=== PATIENT | male | born 1970 | race Caucasian/White ===

== ENCOUNTER 2017-11-02 15:13 | Emergency (ER) | payer OTHER ==
--- OUTSIDE RECORDS SUMMARY | 2017-11-02 17:19 | XMS REPORT ---
:1970 External Reference #:[id number] Author Organization [facility] Address [address] [place] [address] Phone [phone] Care Team Providers Name Role Phone Buck Tejada M.D. Primary Care Physician Unavailable Payers Type Date Identification Numbers Payment Provider Subscriber Commercial Effective: Policy Number: [id number] [facility] Aaron Johansen 2016 Group Number: [id number] [id number] Group Name: [place] [address] PayID: [id number] Problems Date Description Provider Status Onset: 05/29/2017 Allergic rhinitis Lizztete Mendez M.D. Active Onset: 01/30/2017 Cough Lizzette Mendez M.D. Active Onset: 01/30/2017 Pneumonia due to other specified Lizzette Mendez M.D. Active bacteria Onset: 01/30/2017 Uncomplicated moderate persistent asthma Lizzette Mendez M.D. Active Family History Date Family Member(s) Problem(s) Comments Father Food Intolerance Lactose intolerant Father Heart Disease High blood pressure, minor surgeries Onset: (2006) Father Cancer skin cancer, treated Father Parkinsons Mother sinus disorders Mother Drug Allergy allergy to sulfur & sulfur based drugs. 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 Marital Status Legal Status: Lives With Spouse Home Environment There are no draperies in the home Home Environment Cotton Comforter Home Environment Water Source: [facility] Home Environment Lives in a one level home Home Environment Lives in a 1 level wood frame home Home Environment The basement is damp and sump pump used Home Environment The basement is damp and dehumidifier used Home Environment Uses forced air heating Home Environment Has central air Home Environment The floors are wood Home Environment The home is not rebecca Home Environment Uses air [employer] Home Environment Pillows are rubber (foam) Home Environment Pillows are encased in an allergy proof case Home Environment Mattress is 1 year old Home Environment Mattress is encased in an allergy proof case Smoke-Free Work is smoke-free Smoke-Free Home is smoke-free Pets None no dogs in many years Occupation [employer] 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 [place] Work Status Full-Time Employment Hobbies Hiking Cigarette Use Never Smoked Cigarettes Cigars Never Smoked Cigars Pipe Never Smoked A Pipe Smokeless Tobacco Never Used Smokeless Tobacco ETOH Use Rarely consumes alcohol ETOH Use Rarely consumes wine Smoking Patient has never smoked Recreational Drug Use Never Used Drugs Allergies, Adverse Reactions, Alerts Date Description Reaction Status Severity Comments 01/30/2017 Arythromycin heart palpatations active 04/10/2017 Lactose cramps diarrhea active Medications Medication Date Status Form Strength Qnty SIG Indications Ordering Provider Montelukast 05/29/ Active Chewtabs 5mg 60unit chew 2016 s tablets by McNnekarshelly mouth M.D. every day Dulera 04/10/ Active Aerosol 100-5mcg/A 39gm inhale 2016 ct puffs by McNnekarshelly mouth M.D. every morning and evening Ventolin HFA / Active Aerosol 108(90Base 2 every 4 Unknown 0000 ) mcg/Act hours as needed Trazodone HCL / Active Tablets 50mg Unknown 0000 Albuterol / Active Nebulizer (2.5mg/3ML Unknown Sulfate 0000 ) 0.083% Valved Holding / Active Device use as Unknown Chamber 0000 directed Yodit / Active Tablets 180mg 1 by mouth Unknown Allergy 0000 every day Spiriva / Active Aerosol 1.25mcg/Ac 4units inhale Respimat 0000 t puffs by McNairn, mouth M.D. every day Immunizations CPT Code Status Date Vaccine Lot # [id number] Given Unknown Influenza Vaccine 3 Years Old + Vital Signs Date Vital Result Comment 10/30/2017 Height 67 inches 5'7" Weight 173.00 lb Weight in kg's 78.473 Respiratory Rate 20 /min Heart Rate 104 /min O2 % BldC Oximetry 97 % BP Systolic 126 mmHg BP Diastolic 78 mmHg Asthma Control Test 22 BMI (Body Mass Index) 27.1 kg/m2 09/04/2017 Height 67 inches 5'7" Weight 172.00 lb Weight in kg's 78.019 Respiratory Rate 18 /min Heart Rate 97 /min O2 % BldC Oximetry 96 % BP Systolic 119 mmHg BP Diastolic 71 mmHg Asthma Control Test 20 BMI (Body Mass Index) 26.9 kg/m2 07/18/2017 Height 67 inches 5'7" Weight 172.00 lb Weight in kg's 78.019 Respiratory Rate 18 /min Heart Rate 102 /min O2 % BldC Oximetry 98 % BP Systolic 143 mmHg BP Diastolic 91 mmHg Asthma Control Test 18 BMI (Body Mass Index) 26.9 kg/m2 05/29/2017 Height 67 inches 5'7" Weight 173.00 lb Weight in kg's 78.473 Respiratory Rate 18 /min Heart Rate 100 /min O2 % BldC Oximetry 97 % BP Systolic 136 mmHg BP Diastolic 90 mmHg Asthma Control Test 18 BMI (Body Mass Index) 27.1 kg/m2 04/10/2017 Height 67 inches 5'7" Weight 171.00 lb Weight in kg's 77.566 Respiratory Rate 20 /min Heart Rate 73 /min O2 % BldC Oximetry 98 % BP Systolic 132 mmHg BP Diastolic 80 mmHg Asthma Control Test 20 BMI (Body Mass Index) 26.8 kg/m2 03/14/2017 Height 67 inches 5'7" Weight 172.00 lb Weight in kg's 78.019 Respiratory Rate 20 /min Heart Rate 111 /min O2 % BldC Oximetry 97 % BP Systolic 145 mmHg BP Diastolic 95 mmHg Asthma Control Test 19 BMI (Body Mass Index) 26.9 kg/m2 01/30/2017 Height 67 inches 5'7" Weight 172.00 lb Weight in kg's 78.019 Respiratory Rate 20 /min Heart Rate 89 /min O2 % BldC Oximetry 98 % BP Systolic 129 mmHg BP Diastolic 69 mmHg BMI (Body Mass Index) 26.9 kg/m2 Results Description No Information Procedures Date CPT Code Description Status 10/30/2017 85527 Pre PFT Completed 07/18/2017 50123 Pre PFT Completed 05/29/2017 59943 Pre PFT Completed 04/10/2017 48692 Skin Test Scratch # Of Units ____ Completed 04/10/2017 84187 Skin Test Scratch # Of Units ____ Completed 04/10/2017 41078 Pre PFT Completed 04/10/2017 54938 Pre PFT Completed 03/14/2017 47212 Pre PFT Completed 01/30/2017 02346 Pulmonary Function Test Completed Encounters Type Date Location Provider CPT E/M Dx Office Visit 10/30/2017 11:40a Preston Mendez M.D. 65595 J45.40 R05 J30.89 J15.8 Office Visit 09/04/2017 11:20a Preston Mendez M.D. 34164 J45.40 R05 J30.89 Office Visit 07/18/2017 11:20a Preston Menedz M.D. 25098 J45.40 J45.40 R05 J30.89 R05 Office Visit 05/29/2017 3:00p Preston Mendez M.D. 18058 J45.40 J30.89 J15.8 R05 Office Visit 04/10/2017 1:40p KIRTI Winn 69423 J45.40 J30.89 Office Visit 03/14/2017 4:00p KIRTI Winn 01861 J45.40 J15.8 J30.89 Office Visit 01/30/2017 9:40a Preston Mendez M.D. 21513 J45.40 J15.8 R05 Plan of Care Future Appointment(s):05/07/2018 4:20 pm - Lizzette Mendez M.D. at [id number] - Lizzette Mendez M.D.J45.40 Moderate persistent asthma, [id number] Other allergic [id number] Pneumonia due to other specified bacteriaFollow up:6-12 months CHECK-UP/FOLLOW UP VISIT: Continued management of patient's medical care. PFT not neededas he sees KhetiRecommendations:Refrain from wearing perfumes/scented colognes while visiting our office. PRE-PFT performed, reviewed, looks good, at baseline Continue the inhaler as you have, likely at least until you return from [place], or per Dr Fish's recommendation Use Yodit if needed if you developed itchy or runny symptoms
[2017-11-02 17:32] VITALS: BP 152/91
--- NOTE | 2017-11-02 19:03 | UC ---
Throat Pain/Nasal Osmany HPI - HPI Summary HPI Summary: c/o pain on right side when he was chewing yesterday night. Pain lasted several seconds, very intense and subsided as soon as he stopped chewing. He does not have any baseline pain if he is not moving his jaw. He came here to make sure he did not have an infection in his ear as he hears some popping when he moves his jaw. Denies fever, earache, sore throat, - History of Current Complaint Chief Complaint: UCGeneralIllness Stated Complaint: SWELLING R SIDE-FACE Time Seen by Provider: 11/02/17 17:36 Hx Obtained From: Patient Onset/Duration: Sudden Onset, Lasting Hours Severity: Severe Pain Intensity: 2 Cough: None Associated Signs & Symptoms: Positive: Negative - Epiglottits Risk Factors Epiglottis Risk Factors: Negative - Allergies/Home Medications Allergies/Adverse Reactions: Allergies Allergy/AdvReac Type Severity Reaction Status Date / Time MS Erythromycin Allergy Unknown Shortness Verified 12/01/13 15:18 [Erythromycin] of Breath MS Lactose Intolerance (GI) Allergy Unknown Unknown Verified 12/01/13 15:18 [Lactose Intolerance (GI)] Reaction Details MS Sulfa Antibiotics Allergy Unknown Unknown Verified 12/01/13 15:18 [Sulfa Antibiotics] Reaction Details Home Medications: Home Medications Mometasone/Formoter 100/5 MDI* [Dulera 100/5 MDI*] 11/02/17 [History] Montelukast Sodium TAB* [Singulair 5 mg TAB*] 11/02/17 [History] Tiotropium CAP.INH* [Spiriva CAP.INH*] 11/02/17 [History] PMH/Surg Hx/FS Hx/Imm Hx Previously Healthy: Yes Respiratory History: Asthma - Surgical History Surgical History: None - Social History Alcohol Use: None Substance Use Type: None Smoking Status (MU): Never Smoked Tobacco Have You Smoked in the Last Year: No Review of Systems ENT: Other - pain in jaw All Other Systems Reviewed And Are Negative: Yes Physical Exam Triage Information Reviewed: Yes Appearance: Well-Appearing, No Pain Distress, Well-Nourished Vital Signs: Initial Vital Signs Temp 98.2 F 11/02/17 17:23 Pulse 90 11/02/17 17:23 Resp 16 11/02/17 17:23 BP 152/91 11/02/17 17:23 Pulse Ox 98 04/07/18 17:23 Vital Signs Reviewed: Yes Eyes: Positive: Conjunctiva Clear ENT: Positive: Normal ENT inspection, Hearing grossly normal, Pharynx normal, TMs normal, Uvula midline, Other - tender TMJ right on palpation, pain reproduced when he bites Dental Exam: Normal Neck: Positive: Supple, Nontender, No Lymphadenopathy Respiratory: Positive: Chest non-tender, Lungs clear, Normal breath sounds Cardiovascular: Positive: RRR, No Murmur, Pulses Normal Throat Pain/Nasal Course/Dx - Course Course Of Treatment: discussed with patient diagnosis of TMJ, literature given, to take motrin as needed for pain and inflammation. F/u PCP - Differential Dx/Diagnosis Provider Diagnoses: Temporomandibular Joint Discharge - Sign-Out/Discharge Documenting (check all that apply): Discharge - Discharge Plan Condition: Stable Disposition: HOME Prescriptions: Ibuprofen TAB* [Motrin TAB* 600 MG] 600 mg PO Q6H PRN #30 tab PRN Reason: Pain Patient Education Materials: Ibuprofen (By mouth), Temporomandibular Disorder ( ED) Referrals: Buck Tejada MD [Primary Care Provider] - - Billing Disposition and Condition Condition: STABLE Disposition: HOME
== END 2017-11-02 18:13 | disposition home or self-care (01) ==
LOC: UCEAST 15:13
DX: M26.601 Right temporomandibular joint disorder, unspecified (principal); J45.909 Unspecified asthma, uncomplicated; Z88.1 Allergy status to other antibiotic agents; Z88.2 Allergy status to sulfonamides
CPT/HCPCS: 99212; G0463